=== PATIENT | female | born 1965 | race Caucasian/White ===

== ENCOUNTER 2023-07-15 09:35 | Emergency (ER) | payer MEDICARE ==
[2023-07-15 09:52] VITALS: RESP 16; TEMP 97.2; O2SAT 97
[2023-07-15] MEDS ORDERED: DELTASONE 10 MG PO ONE (10:06)
[2023-07-15] MEDS ORDERED: DELTASONE 20 MG ONE (10:07)
--- NOTE | 2023-07-15 10:09 | ERPHSYRPT ---
- History of Present Illness Time Seen by Provider: 07/15/23 09:55 Source: patient Exam Limitations: no limitations Patient Subjective Stated Complaint: Pt reports she has had pressure in bilat ears; ears feel full with occassional ringing in the ears and noises echoing. H as been taking otc claritan d and mucus relief with no relief. Pt denies any drainage. Triage Nursing Assessment: Pt alert and oriented x3. Respirations easy/nonlabored. Skin w/p/d. Afebrile. Bilat ears symmetrical, no noted external redness/lesions. Physician History: The patient presents with a complaint of head pressure and a sensation of conge stion in their ears, which started approximately four days ago. The patient denies any pain in the ears, but reports a feeling of pressure and congestion. There has been no drainage from the ears. Prior to the onset of these symptoms, the patient experienced a one-day stomach bug and a mild fever. No other symptoms, such as cough or congestion, have been reported during the last four days. The patient has tried taking Claritin D to alleviate the symptoms, but noticed an increase in blood pressure after starting the medication. They have also taken mucus relief medication without any improvement in their condition. The patient has not experienced dizziness yet but feels that it may be imminent. In the past, the patient has used Flonase but discontinued its use due to the development of migraines. The patient has also tried using a humidifier at night without any noticeable improvement in their symptoms. Timing/Duration: persistent, days (4) ENT Location: ear (R), ear (L) Prearrival Treatment: over the counter meds Modifying Factors: Improves With: nothing Associated Symptoms: change in hearing, No ear pain (R), No ear pain (L), No cough, No fever, No chills, No dizziness, No ear drainage, No facial pain/swelling, No headache Allergies/Adverse Reactions: ciprofloxacin [From Cipro] Adverse Reaction (Verified 07/15/23 09:46) Shortness of Breath lorazepam [From Ativan] Adverse Reaction (Verified 07/15/23 09:46) Rash meperidine [From Demerol] Adverse Reaction (Verified 07/15/23 09:46) Rash morphine Adverse Reaction (Verified 07/15/23 09:46) Rash Sulfa (Sulfonamide Antibiotics) Adverse Reaction (Verified 10/29/23 09:46) Rash Home Medications: Famotidine 1 tab PO DAILY PRN 07/15/23 [History] L.acidoph,Paracasei, B.lactis [Probiotic] 1 tab PO DAILY 07/15/23 [History] Losartan/Hydrochlorothiazide [Losartan-Hctz 50-12.5 mg Tab] 1 tab PO HS 07/15/23 [History] Hx Tetanus, Diphtheria Vaccination/Date Given: Yes Hx Influenza Vaccination/Date Given: No Hx Pneumococcal Vaccination/Date Given: No Travel Risk - International Travel Have you traveled outside of the country in past 3 weeks: No - Coronavirus Screening Are you exhibiting any of the following symptoms?: No Close contact with a COVID-19 positive Pt in past 14-21 Days: No - Vaccine Status Have you recieved a Covid-19 vaccination: Yes Mopper: Vitrina - Vaccination Dates Date of 2cond Vaccination (if applicable): ? - Review of Systems All Other Systems: Reviewed and Negative (As per HPI) - Past Medical History Pertinent Past Medical History: Yes Neurological History: Migraines Cardiac History: High Cholesterol, Hypertension Respiratory History: No Pertinent History Endocrine Medical History: Other Musculoskeletal History: Fractures, Osteoarthritis Other Medical History: DIVERTICULITIS, spinal fx - Past Surgical History Past Surgical History: Yes Gastrointestinal: Appendectomy Musculoskeletal: Orthopedic Surgery Female Surgical History: Hysterectomy Other Surgical History: vetebral augmentation - Social History Smoking Status: Never smoker Exposure to second hand smoke: No Drug Use: none Patient Lives Alone: No - Nursing Vital Signs Nursing Vital Signs: Initial Vital Signs Temperature 97.2 F 07/15/23 09:39 Pulse Rate 84 07/15/23 09:39 Respiratory Rate 16 07/15/23 09:39 Blood Pressure 166/99 07/15/23 09:39 O2 Sat by Pulse Oximetry 97 07/15/23 09:39 Pain Scale Pain Intensity 0 - Physical Exam General Appearance: no apparent distress Eye Exam: bilateral eye: normal inspection, PERRL, EOMI Ear Exam: bilateral ear: auricle normal, canal normal, TM bulging Nasal Exam: normal inspection Throat Exam: No pharynx swelling, No pharynx tenderness, No tonsillar exudate, No tonsillar swelling Neck Exam: normal inspection, non-tender, supple, full range of motion Neurologic Exam: alert, oriented x 3, cooperative Skin Exam: normal color, warm, dry, No rash SpO2 Interpretation: normal SpO2: 97 O2 Delivery: Room Air - Course Nursing assessment & vital signs reviewed: Yes Ordered Tests: Medication Summary Discontinued Medications Generic Name Dose Route Start Last Admin Trade Name Tracie PRN Reason Stop Dose Admin Prednisone 10 mg 07/15/23 10:06 07/15/23 10:09 Prednisone 10 Mg Tablet PO 07/15/23 10:07 10 mg ONCE ONE Administration Prednisone Confirm 07/15/23 10:07 Prednisone 20 Mg Tablet Administered 07/15/23 10:08 Dose 20 mg .ROUTE .STK-MED ONE - Progress Progress: unchanged Progress Note: Discussed cause of sxs being ETD. Best treatment is intranasal steroids with Flonase to help open the ETs. Patient prescribed a burst of Prednisone to help relieve her sxs quicker. Continue use of daily Claritin. Counseled pt/family regarding: diagnosis Medical Desision Making - Diagnostic Testing Diagnostic test were ordered, analyzed, and reviewed by me: No - Risk of complications The pt has a mod risk of morbidity or mortality based on: Need for prescription drug management - Departure Departure Disposition: Home Clinical Impression: Eustachian tube dysfunction, Allergic rhinitis, Ear pressure Condition: Good Critical Care Time: No Referrals: DAMION SANTIAGO MD [Primary Care Provider] - Follow up/PCP as directed Instructions: Eustachian tube problems Additional Instructions: Continue use of Claritin daily, please add Flonase twice daily to your regimen. Prescriptions: Prednisone 10 mg [Deltasone 10 mg] 10 mg PO DAILY #4 tablet
[2023-07-15 11:11] VITALS: BP 140/78; PULSE 77
== END 2023-07-15 10:18 | disposition home or self-care (01) ==
LOC: ED 09:35
DX: H69.83 Other specified disorders of Eustachian tube, bilateral (principal); J30.9 Allergic rhinitis, unspecified; H93.8X3 Other specified disorders of ear, bilateral; E78.5 Hyperlipidemia, unspecified; I10 Essential (primary) hypertension; Z79.52 Long term (current) use of systemic steroids; Z79.899 Other long term (current) drug therapy
CPT/HCPCS: 99281; A9270-GY

== ENCOUNTER 2024-05-20 00:23 | Emergency (ER) | payer MEDICARE ==
[2024-05-20 00:40] VITALS: TEMP 98.1
[2024-05-20] MEDS ORDERED: BENADRYL 50 MG/ML ONE (01:00)
[2024-05-20] MEDS ORDERED: Sterile H2O 10 ml IJ ONE (01:00)
[2024-05-20] MEDS ORDERED: Pepcid 20 MG VIAL IV ONE (01:00)
[2024-05-20] MEDS ORDERED: solu-MEDROL ONE (01:01)
[2024-05-20] MEDS: Pepcid 20 MG VIAL IV ONE (01:08)
[2024-05-20] MEDS: BENADRYL 50 MG/ML IV ONE (01:09)
[2024-05-20] MEDS: solu-MEDROL 125 MG, Sterile H2O 10 ml 2 ML IV ONE (01:12)
--- NOTE | 2024-05-20 01:22 | ERPHSYRPT ---
- History of Present Illness Time Seen by Provider: 05/20/24 00:45 Source: patient Exam Limitations: no limitations Patient Subjective Stated Complaint: pt states she woke up around 2350 with hives on her arms and legs Triage Nursing Assessment: pt alert and oriented, answers questions approp. pt ambuates into room with steady gait noted. respirations nonlbored with lungs cta. skin warm and rdry with red, raised areas on bilat arms and legs. Physician History: 59 years old female with history of hypertension, presented in the ER after she woke up prior to arrival with hives, itching all over with progressive worse jessica. She noticed initially in her lower extremity and now in the upper extremity. No difficulty breathing. She has taken 25 mg Benadryl with no significant relief. Denies any difficulty breathing, throat closing sensation, difficulty swallowing, swelling of the tongue. Allergies/Adverse Reactions: ciprofloxacin [From Cipro] Adverse Reaction (Verified 05/20/24 00:39) Shortness of Breath lorazepam [From Ativan] Adverse Reaction (Verified 05/20/24 00:39) Rash meperidine [From Demerol] Adverse Reaction (Verified 05/20/24 00:39) Rash morphine Adverse Reaction (Verified 05/20/24 00:39) Rash Sulfa (Sulfonamide Antibiotics) Adverse Reaction (Verified 05/20/24 00:39) Rash Home Medications: L.acidoph,Paracasei, B.lactis [Probiotic] 1 tab PO DAILY 07/15/23 [History] Losartan/Hydrochlorothiazide [Losartan-Hctz 50-12.5 mg Tab] 1 tab PO HS 07/15/23 [History] Dicyclomine HCl 10 mg PO TID PRN PRN 05/20/24 [History] Hx Tetanus, Diphtheria Vaccination/Date Given: Yes Hx Influenza Vaccination/Date Given: No Hx Pneumococcal Vaccination/Date Given: No Immunizations Up to Date: Yes Travel Risk - International Travel Have you traveled outside of the country in past 3 weeks: No - Emerging Infectious Disease Are you exhibiting symptoms associated with any current EIDs: No - Review of Systems Constitutional: No Symptoms Ears, Nose, & Throat: No Symptoms Respiratory: No Symptoms Cardiac: No Symptoms Abdominal/Gastrointestinal: No Symptoms Skin: Pruritis, Rash, Skin Lesions Neurological: No Symptoms Endocrine: No Symptoms Hematologic/Lymphatic: No Symptoms - Past Medical History Pertinent Past Medical History: Yes Neurological History: Migraines Cardiac History: High Cholesterol, Hypertension Respiratory History: No Pertinent History Endocrine Medical History: Other Musculoskeletal History: Fractures, Osteoarthritis Other Medical History: DIVERTICULITIS, spinal fx - Past Surgical History Past Surgical History: Yes Gastrointestinal: Appendectomy Musculoskeletal: Orthopedic Surgery Female Surgical History: Hysterectomy Other Surgical History: vetebral augmentation - Social History Smoking Status: Never smoker Exposure to second hand smoke: No Drug Use: none Patient Lives Alone: No - Social Determinants of Health Will the patient participate in the screening: Declined to provide - Nursing Vital Signs Nursing Vital Signs: Initial Vital Signs Temperature 98.1 F 05/20/24 00:31 Pulse Rate 81 05/20/24 00:31 Respiratory Rate 16 05/20/24 00:31 Blood Pressure 122/59 05/20/24 00:31 O2 Sat by Pulse Oximetry 95 05/20/24 00:31 Pain Scale Pain Intensity 0 - Physical Exam General Appearance: no apparent distress, alert Eye Exam: PERRL/EOMI Ears, Nose, Throat Exam: normal ENT inspection Neck Exam: normal inspection, non-tender, supple, full range of motion Respiratory Exam: normal breath sounds, lungs clear Cardiovascular Exam: regular rate/rhythm, normal heart sounds Back Exam: normal inspection Extremity Exam: normal inspection, normal range of motion, pelvis stable Neurologic Exam: alert, oriented x 3, cooperative Skin Exam: normal color, rash, other (Hives and wheals on the upper and lower extremities.) SpO2 Interpretation: normal SpO2: 95 O2 Delivery: Room Air Ordered Tests: Active Orders 24 hr Category Date Time Status IV Insertion STAT Care 05/20/24 00:45 Active Medication Summary Discontinued Medications Generic Name Dose Route Start Last Admin Trade Name Freq PRN Reason Stop Dose Admin Methylprednisolone Sodium 0 mg 05/20/24 00:45 05/20/24 01:12 Succinate 125 mg/ Sterile IV 05/20/24 00:46 125 mg Water 2 ml STAT ONE Administration Diphenhydramine HCl 25 mg 05/20/24 00:45 05/20/24 01:09 Diphenhydramine Hcl 50 Mg/Ml Vial IV 05/20/24 00:46 25 mg STAT ONE Administration Diphenhydramine HCl Confirm 05/20/24 01:00 Diphenhydramine Hcl 50 Mg/Ml Vial Administered 05/20/24 01:01 Dose 50 mg .ROUTE .STK-MED ONE Famotidine 20 mg 05/20/24 00:45 05/20/24 01:08 Famotidine 20 Mg/1 Vial IV 05/20/24 00:46 20 mg STAT ONE Administration Famotidine Confirm 05/20/24 01:00 Famotidine 20 Mg/1 Vial Administered 05/20/24 01:01 Dose 20 mg IV .STK-MED ONE Methylprednisolone Sodium Succinate Confirm 05/20/24 01:01 Methylprednis Sod Succ 125 Mg/2 Ml Vial Administered 05/20/24 01:02 Dose 125 mg .ROUTE .STK-MED ONE Sterile Water Confirm 05/20/24 01:00 Water For Injection,Sterile 10 Ml Vial Administered 05/20/24 01:01 Dose 10 ml IJ .STK-MED ONE - Progress Progress: improved Progress Note: 05/20/24 01:38 59 years old is evaluated in the ER for hives/allergic reaction. Patient has no obvious new allergen exposure. She is not in any distress. Lungs clear to auscultation. No pharyngeal, tongue or swelling floor of the mouth. She is given Solu-Medrol Benadryl and Pepcid, on reevaluation rash is improved.. Discussed signs symptoms of worsening needing return to ER which she seems understanding. Stable for discharge. Counseled pt/family regarding: diagnosis, need for follow-up Medical Desision Making - Risk of complications The pt has a mod risk of morbidity or mortality based on: Need for prescription drug management - Departure Departure Disposition: Home Clinical Impression: Allergic reaction Condition: Stable Critical Care Time: No Referrals: DAMION SANTIAGO MD [Primary Care Provider] - Follow up with PCP 1 day Instructions: Anaphylaxis - Discharge instructions Additional Instructions: Use EpiPen as needed. Follow-up with primary care for reevaluation and may need her referral for human services program specialist for further evaluation. Return to ER for any worsening rash or if having difficulty breathing tongue swelling, choking sensation etc. Prescriptions: Diphenhydramine HCl 25 mg [Benadryl 25 mg Capsule] 25 mg PO Q4H PRN PRN #20 cap PRN Reason: Allergies Prednisone 20 mg [Deltasone 20 mg] 60 mg PO DAILY 5 Days #15 tablet Famotidine 20 mg [Pepcid 20 MG] 20 mg PO BID #10 tablet EPINEPHrine [Symjepi] 0.3 mg IJ DIRECTIONS UNKNOWN PRN 1 Days #1 unit PRN Reason: Allergies
[2024-05-20 01:32] VITALS: BP 162/78; PULSE 69; RESP 18; O2SAT 96
== END 2024-05-20 01:40 | disposition home or self-care (01) ==
LOC: ED 00:23
DX: T78.40XA Allergy, unspecified, initial encounter (principal); L50.9 Urticaria, unspecified; I10 Essential (primary) hypertension; E78.5 Hyperlipidemia, unspecified; Z79.52 Long term (current) use of systemic steroids; Z79.899 Other long term (current) drug therapy
CPT/HCPCS: 36000; 96374; 96375; 99283; J1200; J2919